=== PATIENT | female | born 1945 | race American Indian/Alaskan Native ===

== ENCOUNTER 2018-11-05 09:25 | Emergency (ER) | payer MEDICARE ==
[2018-11-05] MEDS ORDERED: CATAPRES PO ONE ×2 (09:59→10:08)
--- NOTE | 2018-11-05 09:59 | Emergency Department Report ---
- General Chief complaint: Skin/Abscess/Foreign Body Stated complaint: RT UPPER UNDERARM PAIN Time Seen by Provider: 11/05/18 09:51 Source: patient Mode of arrival: Ambulatory Limitations: No Limitations - History of Present Illness Initial comments: Patient is 73 years old female with history of hypertension. Patient presented to the ER complaining of swelling under the right axilla for the last 3 days. Patient stated that the size is getting smaller now. Patient denied any fever or chills. No nausea or vomiting. MD complaint: abscess/boil -: days(s) (3) Tetanus Up to Date: yes Location: RUE Severity: moderate Consistency: intermittent - Related Data Allergies Allergy/AdvReac Type Severity Reaction Status Date / Time No Known Allergies Allergy Verified 11/05/18 09:29 Abscess Boil HPI - HPI Chief Complaint: Skin/Abscess/Foreign Body Stated Complaint: RT UPPER UNDERARM PAIN Time Seen by Provider: 11/05/18 09:51 Allergies/Adverse Reactions: Allergies Allergy/AdvReac Type Severity Reaction Status Date / Time No Known Allergies Allergy Verified 11/05/18 09:29 ED Review of Systems ROS: Stated complaint: RT UPPER UNDERARM PAIN Other details as noted in HPI Comment: All other systems reviewed and negative Constitutional: denies: chills, fever Respiratory: denies: cough, shortness of breath, SOB with exertion, wheezing Cardiovascular: denies: chest pain, palpitations Gastrointestinal: denies: abdominal pain, nausea, vomiting Skin: lesions ED Past Medical Hx - Past Medical History Previous Medical History?: Yes Hx Hypertension: Yes - Surgical History Past Surgical History?: No - Social History Smoking Status: Never Smoker Substance Use Type: None ED Physical Exam - General Limitations: No Limitations General appearance: alert, in no apparent distress - Head Head exam: Present: atraumatic, normocephalic, normal inspection - Eye Eye exam: Present: normal appearance, PERRL - ENT ENT exam: Present: normal exam, normal orophraynx, mucous membranes moist - Neck Neck exam: Present: normal inspection, full ROM. Absent: tenderness, meningismus, lymphadenopathy, thyromegaly - Respiratory Respiratory exam: Present: normal lung sounds bilaterally - Cardiovascular Cardiovascular Exam: Present: regular rate, normal rhythm, normal heart sounds - GI/Abdominal GI/Abdominal exam: Present: soft, normal bowel sounds. Absent: distended, tenderness, guarding, rebound, rigid, organomegaly, mass, bruit, pulsatile mass, hernia - Extremities Exam Extremities exam: Present: normal inspection, full ROM, normal capillary refill - Neurological Exam Neurological exam: Present: alert, oriented X3, CN II-XII intact, normal gait, reflexes normal - Psychiatric Psychiatric exam: Present: normal mood - Skin Skin exam: Present: other (2 cm swelling on the right axilla, nonfluctuant with no active drainage.) ED Course Vital Signs 11/05/18 11/05/18 11/05/18 09:39 10:05 10:09 Temperature 98.2 F Pulse Rate 104 H 101 H 101 H Respiratory 20 Rate Blood Pressure 183/98 185/115 185/115 Blood Pressure [Right] O2 Sat by Pulse 99 Oximetry 11/05/18 11:27 Temperature Pulse Rate 91 H Respiratory 20 Rate Blood Pressure Blood Pressure 149/61 [Right] O2 Sat by Pulse Oximetry ED Medical Decision Making - Medical Decision Making Patient is 73 years old female with history of hypertension. Patient presented to the ER complaining of swelling under the right axilla for the last 3 days. Patient stated that the size is getting smaller now. Patient denied any fever or chills. No nausea or vomiting. Patient received clonidine for significantly elevated high blood pressure of 185/115. Patient can blood pressure now is 149/61. Chin given a prescription for Bactrim and tramadol and Zofran. Patient advised to follow-up with her primary care physician in the next 2-3 days also advised to apply warm compresses and to return to the ER if symptoms are not improved. Critical care attestation.: If time is entered above; I have spent that time in minutes in the direct care of this critically ill patient, excluding procedure time. ED Disposition Clinical Impression: Abscess of right axilla, Malignant hypertension Disposition: DC-01 TO HOME OR SELFCARE Is pt being admited?: No Condition: Stable Instructions: Abscess (ED), Hypertension (ED) Referrals: PRIMARY CARE, [Primary Care Provider] - 3-5 Days
[2018-11-05 11:27] VITALS: BP 149/61
== END 2018-11-05 12:10 | disposition home or self-care (01) ==
LOC: ED 09:25
DX: L02.411 Cutaneous abscess of right axilla (principal); I10 Essential (primary) hypertension